=== PATIENT | female | born 1995 | race Caucasian/White ===

== ENCOUNTER 2018-05-15 21:07 | Emergency (ER) | payer SELFPAY ==
[~2018-05-15] VITALS: Ht 170.2 cm; Wt 122.7 kg
[2018-05-15 21:30] VITALS: BP 124/81; TEMP 97.9
[2018-05-15] MEDS ORDERED: PRILOSEC 20MG20 MG PO (21:33)
[2018-05-15] MEDS ORDERED: MULTI VITAMINS1 TAB PO (21:33)
[2018-05-15] MEDS ORDERED: SARAFEM10 MG PO (21:33)
[2018-05-15] MEDS ORDERED: LEVOXYL0.1 MG PO (21:33)
[2018-05-15] MEDS ORDERED: WELLBUTRIN 75MG75 MG PO (21:33)
[2018-05-15 22:44] VITALS: PULSE 84
== END 2018-05-15 22:45 | disposition home or self-care (01) ==
LOC: COL.ER 21:07
DX: Z32.00 Encounter for pregnancy test, result unknown (principal); E03.9 Hypothyroidism, unspecified; K21.9 Gastro-esophageal reflux disease without esophagitis; F90.9 Attention-deficit hyperactivity disorder, unspecified type; F32.9 Major depressive disorder, single episode, unspecified; Z90.89 Acquired absence of other organs